=== PATIENT | female | born 1990 | race Caucasian/White ===

== ENCOUNTER 2021-10-26 02:52 | Emergency (ER) | payer BC ==
[~2021-10-26] VITALS: Ht 165.1 cm; Wt 83.9 kg
--- NOTE | 2021-10-26 03:05 | NUR ---
PATIENT BIBFRIEND C/O FRAUSTO SINCE NOON, RIGHT EYE PAIN, DIFFICULTY SPEAKING. PATIENT IS A/OX 4, RR EVEN AND UNLABORED. NO SOB NOTED. PATIENT IS AFEBRILE. PATIENT AMBUALTED TO ER BED 02. PATIENT CONNECTED TO CARDIAC AND POX MONITOR.
--- NOTE | 2021-10-26 03:06 | NUR ---
20G IV LINE ESTABLISHED AT . BLOOD DRAWN AND SENT TO LAB.
[2021-10-26] MEDS ORDERED: METOCLOPRAMIDE HCL 10 MG/2 ML VIAL ONE (03:08)
[2021-10-26] MEDS ORDERED: ACETAMINOPHEN ES 500 MG TABLET ONE (03:08)
[2021-10-26] MEDS ORDERED: SUMATRIPTAN SUCCINATE 6 MG/0.5 ML VIAL SQ ONE (03:08)
--- NOTE | 2021-10-26 03:09 | NUR ---
POC BG [phone]
--- NOTE | 2021-10-26 03:09 | NUR ---
PT BEING TRANSPORTED TO CT [facility]IA [facility]
[2021-10-26 03:17] LABS: BASOPHILS # (AUTO) 0.1 K/uL (0.0-0.2); BASOPHILS % (AUTO) 0.5 % (0.0-2.0); EOSINOPHILS % (AUTO) 0.9 % (0.0-6.0); HEMATOCRIT 41 % (33-45); HEMOGLOBIN 13.8 g/dL (11.5-14.8); LYMPHOCYTES # (AUTO) 1.8 K/uL (0.8-4.8); LYMPHOCYTES % (AUTO) 17.5 % (20.0-44.0); MEAN CORPUSCULAR HGB CONC 34 g/dl (31.0-36.0); MEAN CORPUSCULAR VOLUME 88 fL (82-100); MONOCYTES # (AUTO) 0.7 K/uL (0.1-1.30); MONOCYTES % (AUTO) 6.9 % (2.0-12.0); NEUTROPHILS # (AUTO) 7.5 K/uL (1.8-8.9); NEUTROPHILS % (AUTO) 74.2 % (43.0-81.0); PLATELET COUNT (AUTO) 326 K/uL (150-450); WHITE BLOOD COUNT (AUTO) 10.2 K/uL (4.3-11.0)
[2021-10-26] MEDS: IV NS 0.9% 1,000 ML BAG IV ONE (03:29)
[2021-10-26] MEDS: ACETAMINOPHEN ES 500 MG TABLET PO ONE (03:29)
[2021-10-26] MEDS: SUMATRIPTAN SUCCINATE 6 MG/0.5 ML VIAL SQ ONE (03:29)
[2021-10-26] MEDS: METOCLOPRAMIDE HCL 10 MG/2 ML VIAL IV ONE (03:29)
[2021-10-26 03:53] LABS: CREATININE 0.9 mg/dL (0.6-1.3); POTASSIUM 4.1 mmol/L (3.5-5.1)
[2021-10-26 03:58] LABS: ALBUMIN 3.8 g/dL (3.4-5.0); BILIRUBIN,DIRECT 0.1 mg/dL (0.0-0.2); BILIRUBIN,TOTAL 0.4 mg/dL (0.2-1.0); TOTAL PROTEIN, SERUM 8.6 g/dL (6.4-8.2)
[2021-10-26] MEDS ORDERED: SUMA100T16 PO (04:50)
[2021-10-26] MEDS ORDERED: METO-295 PO (04:50)
[2021-10-26] MEDS ORDERED: AMOX-430 PO (07:47)
[2021-10-26] MEDS ORDERED: IBUP-1955 PO (07:48)
[2021-10-26] MEDS ORDERED: AMOX/CLAVULANATE 875 MG TABLET ONE (07:57)
[2021-10-26] MEDS: AMOX/CLAVULANATE 875 MG TABLET PO ONE (08:01)
--- NOTE | 2021-10-26 08:03 | NUR ---
IV removed. Catheter intact and site benign. Pressure and 4x4 applied to site. No bleeding noted.Patient discharged to home in stable condition. Written and verbal after care instructions given. Patient verbalizes understanding of instruction.
[2021-10-26 08:04] VITALS: BP 145/82
== END 2021-10-26 08:06 | disposition home or self-care (01) ==
LOC: ER 02:57
DX: G43.909 Migraine, unspecified, not intractable, without status migrainosus (principal); Z60.2 Problems related to living alone
CPT/HCPCS: 36415; 70450; 80048; 80076; 82962; 85025; 85730; 96361; 96372; 96374; 99285; J2765; J3030; J7030